=== PATIENT | male | born 1985 | race Caucasian/White ===

== ENCOUNTER 2019-07-13 17:51 | Emergency (ER) | payer BC ==
[~2019-07-13] VITALS: Ht 172.7 cm; Wt 64.4 kg
[2019-07-13 18:16] VITALS: BP_SYST 121
[2019-07-13] MEDS ORDERED: LIDOCAINE 1% 10 MG/ML, 20 ML MDV INJ ONE (18:45)
[2019-07-13] MEDS ORDERED: LIDOCAINE 1%, 20 ML MDV 20 ML ONE (18:58)
[2019-07-13] MEDS ORDERED: PIPERACILLIN/TAZO 3.375 GM in NS 50 ML IV ONE (19:00)
[2019-07-13] MEDS ORDERED: MUPIROCIN 2% TOPICAL OINTMENT 22 GM TP ONE (19:30)
[2019-07-13] MEDS ORDERED: PIPERACILLIN/TAZOBACTAM 3.375 GM/VIAL (ZOSYN) IV ONE (20:09)
[2019-07-13] MEDS ORDERED: BACITRACIN 1 GM OINT TP ONE ×2 (20:15→20:18)
[2019-07-13] MEDS ORDERED: DIPH-TET-PERTUS Vaccine 0.5 ML VIAL (ADACEL) I.M. ONE (20:30)
[2019-07-13 20:55] VITALS: BP_SYST 119
== END 2019-07-13 20:46 | disposition home or self-care (01) ==
LOC: SED 17:51
DX: S60.451A Superficial foreign body of left index finger, initial encounter (principal); W22.8XXA Striking against or struck by other objects, initial encounter; Y93.H3 Activity, building and construction; Y92.098 Other place in other non-institutional residence as the place of occurrence of the external cause; Y99.8 Other external cause status
CPT/HCPCS: 36415; 73140; 87040; 90471; 90715; 96365; 99284; J2001; J2543